=== PATIENT | female | born 1975 | race Caucasian/White ===

== ENCOUNTER 2021-02-04 18:19 | Emergency (ER) | payer OTHER, SELFPAY ==
[2021-02-04 18:26] VITALS: BP 123/68; PULSE 61; TEMP 98.3; BMI 24.2
== END 2021-02-04 18:48 | disposition home or self-care (01) ==
LOC: JER 18:19 → JERFT 18:19
DX: M79.644 Pain in right finger(s) (principal); X50.0XXA Overexertion from strenuous movement or load, initial encounter; Y92.238 Other place in hospital as the place of occurrence of the external cause
CPT/HCPCS: 73140-TC-RT-FY; 99283-25

== ENCOUNTER 2021-07-02 16:20 | Emergency (ER) | payer OTHER ==
[2021-07-02 16:34] VITALS: BP 128/75; PULSE 71; TEMP 98.6; BMI 23.8
== END 2021-07-02 17:18 | disposition home or self-care (01) ==
LOC: JERFT 16:20 → JER 16:20 → JERFT 17:18
DX: S09.93XA Unspecified injury of face, initial encounter (principal); Y04.8XXA Assault by other bodily force, initial encounter
CPT/HCPCS: 99283-25

== ENCOUNTER 2021-08-10 13:29 | Emergency (ER) | payer OTHER ==
[2021-08-10 13:42] VITALS: BMI 23.4
[2021-08-10] MEDS ORDERED: SODIUM CHLORIDE 1,000 ML IV STA (13:43)
[2021-08-10] MEDS ORDERED: ASPIRIN 81 MG CHEWABLE TABLETS PO ONE (13:43)
[2021-08-10] MEDS ORDERED: ACETAMINOPHEN 1000 MG/100 ML BAG IVPB ONE (13:52)
[2021-08-10] MEDS ORDERED: ACETAMINOPHEN INJECTION 100 ML IVPB ONE (13:56)
[2021-08-10 14:35] LABS: BASO % 0.9 % (0-2.0); EOS % 3.5 % (0-4.5); HEMATOCRIT 41.6 % (32.4-45.2); HEMOGLOBIN 14.3 GM/dL (10.7-15.3); LYMPH % 27.2 % (8-40); MCH 32.6 pg (25.7-33.7); MCHC 34.4 g/dl (32.0-36.0); MEAN CELL VOLUME 94.9 fl (80-96); MEAN PLT VOLUME 9.6 fl (7.5-11.1); MONO % 17.7 % (3.8-10.2); NEUT % 50.7 % (42.8-82.8); PLATELET COUNT 212 10^3/uL (134-434); RBC 4.38 M/mm3 (3.60-5.2); RDW 13.4 % (11.6-15.6); WHITE BLOOD COUNT 4.6 K/mm3 (4.0-10.0)
[2021-08-10 14:41] LABS: INR 1.03 (0.83-1.09); PROTHROMBIN TIME (PATIENT) 11.9 SEC (9.7-13.0)
[2021-08-10 14:49] LABS: ACTIVATED PTT 33.6 SECONDS (25.2-36.5)
[2021-08-10 14:54] LABS: CHLORIDE 109 mmol/L (98-107); SODIUM 141 mmol/L (136-145)
[2021-08-10 14:56] LABS: BLOOD UREA NITROGEN 19.2 mg/dL (7-18); GLUCOSE,RANDOM 83 mg/dL (74-106)
[2021-08-10 14:57] LABS: ANION GAP 7 MMOL/L (8-16); CALCIUM 8.4 mg/dL (8.5-10.1); CO2 25 mmol/L (21-32)
[2021-08-10 14:59] LABS: CHOLESTEROL 168 mg/dL (50-200)
[2021-08-10 15:00] LABS: CREATININE 0.7 mg/dL (0.55-1.3); LDL CHOLESTEROL (ONLY SJRH) 98 mg/dL (5-100); SGPT/ALT 43 U/L (13-61); TRIGLYCERIDES 182 mg/dL (0-150)
[2021-08-10 15:01] LABS: BILIRUBIN,TOTAL < 0.1 mg/dL (0.2-1); SGOT/AST 20 U/L (15-37); TOT PROT 6.9 g/dl (6.4-8.2)
[2021-08-10 15:02] LABS: ALK PHOS 53 U/L (45-117); HDL CHOLESTEROL 50 mg/dL (40-60)
[2021-08-10 16:17] VITALS: BP 135/91; PULSE 82; TEMP 98
== END 2021-08-10 16:18 | disposition home or self-care (01) ==
LOC: JER 13:29
PROC: 3E0333Z Introduction of Anti-inflammatory into Peripheral Vein, Percutaneous Approach (ICD-10-PCS; principal; 2021-08-10)
PROC: 3E0337Z Introduction of Electrolytic and Water Balance Substance into Peripheral Vein, Percutaneous Approach (ICD-10-PCS; 2021-08-10)
DX: R06.02 Shortness of breath (principal); E78.1 Pure hyperglyceridemia
CPT/HCPCS: 0241U-QW; 36415; 71046-TC-FY; 80053; 80061; 82550; 82553; 83735; 84436; 84439; 84443; 84479; 84484; 85025; 85610; 85730; 87807; 93005; 93010; 99285-25; C9803-CS; U0003; U0005

== ENCOUNTER 2021-09-15 13:52 | Emergency (ER) | payer OTHER ==
[2021-09-15 14:18] VITALS: TEMP 98.6; BMI 23.4
[2021-09-15 14:25] LABS: BASO % 0.7 % (0-2.0); EOS % 0.8 % (0-4.5); HEMATOCRIT 41.8 % (32.4-45.2); HEMOGLOBIN 13.9 GM/dL (10.7-15.3); LYMPH % 33.3 % (8-40); MCH 31.9 pg (25.7-33.7); MCHC 33.4 g/dl (32.0-36.0); MEAN CELL VOLUME 95.7 fl (80-96); MEAN PLT VOLUME 9.3 fl (7.5-11.1); MONO % 8.6 % (3.8-10.2); NEUT % 56.6 % (42.8-82.8); PLATELET COUNT 271 10^3/uL (134-434); RBC 4.37 M/mm3 (3.60-5.2); RDW 13.2 % (11.6-15.6); WHITE BLOOD COUNT 7.5 K/mm3 (4.0-10.0)
[2021-09-15 14:55] LABS: ALBUMIN 4.4 g/dl (3.4-5.0); BLOOD UREA NITROGEN 19.2 mg/dL (7-18)
[2021-09-15 14:58] LABS: CREATININE 0.9 mg/dL (0.55-1.3)
[2021-09-15 15:00] LABS: BILIRUBIN,TOTAL 0.5 mg/dL (0.2-1); TOT PROT 7.6 g/dl (6.4-8.2)
[2021-09-15 16:38] VITALS: BP 131/91; PULSE 68
== END 2021-09-15 16:00 | disposition home or self-care (01) ==
LOC: JER 13:52
DX: R55 Syncope and collapse (principal)
CPT/HCPCS: 36415; 80053; 82962; 84443; 84481; 84484; 85025; 93005; 93010; 99284-25

== ENCOUNTER 2021-11-14 11:28 | Emergency (ER) | payer BC, OTHER ==
[2021-11-14 11:46] VITALS: BP 131/76; PULSE 69; RESP 19; TEMP 98.6; BMI 24.6
[2021-11-14] MEDS ORDERED: SODIUM CHLORIDE 1,000 ML IV STA ×2 (11:46→13:02)
[2021-11-14] MEDS ORDERED: KETOROLAC TROMETHAMINE 30 MG/1 ML VIAL IVPUSH ONE (11:47)
[2021-11-14] MEDS ORDERED: ONDANSETRON 4 MG/2 ML VIAL IVPUSH ONE (11:47)
[2021-11-14] MEDS ORDERED: KETOROLAC TROMETHAMINE 30 MG/1 ML VIAL ONE (11:51)
[2021-11-14] MEDS ORDERED: ONDANSETRON 4 MG/2 ML VIAL ONE (11:52)
[2021-11-14] MEDS ORDERED: ACETAMINOPHEN 1000 MG/100 ML BAG IVPB ONE (13:02)
[2021-11-14] MEDS ORDERED: ACETAMINOPHEN INJECTION 100 ML IVPB ONE (13:08)
[2021-11-14] MEDS ORDERED: MAGNESIUM SULF 50% (8.12 MEQ/2 ML-1 GM VIAL) IVPB ONE (13:47)
[2021-11-14] MEDS ORDERED: MAGNESIUM SULF 50% (8.12 MEQ/2 ML-1 GM VIAL) ONE (13:51)
== END 2021-11-14 14:57 | disposition home or self-care (01) ==
LOC: JER 11:28 → JERFT 11:28
PROC: 3E033GC Introduction of Other Therapeutic Substance into Peripheral Vein, Percutaneous Approach (ICD-10-PCS; principal; 2021-11-14)
DX: G43.809 Other migraine, not intractable, without status migrainosus (principal)
CPT/HCPCS: 99284-25

== ENCOUNTER 2022-07-24 13:26 | Emergency (ER) | payer BC ==
[2022-07-24 13:33] VITALS: BP 102/63; PULSE 63; RESP 18; TEMP 98.8; BMI 20.1
[2022-07-24] MEDS ORDERED: SODIUM CHLORIDE 0.9% 1000 ML INFUS.BAG IV ONE (13:39)
[2022-07-24] MEDS ORDERED: ONDANSETRON 4 MG/2 ML VIAL IVPUSH ONE (14:15)
[2022-07-24] MEDS ORDERED: KETOROLAC TROMETHAMINE 30 MG/1 ML VIAL IVPUSH ONE (14:15)
[2022-07-24] MEDS ORDERED: ACETAMINOPHEN 1000 MG/100 ML BAG IVPB ONE (14:15)
[2022-07-24] MEDS ORDERED: KETOROLAC TROMETHAMINE 30 MG/1 ML VIAL ONE ×2 (14:29→14:31)
[2022-07-24] MEDS ORDERED: ONDANSETRON 4 MG/2 ML VIAL ONE (14:29)
[2022-07-24] MEDS ORDERED: ACETAMINOPHEN INJECTION 100 ML IVPB ONE (14:29)
[2022-07-24 14:31] LABS: BASO % 0.4 % (0-2.0); EOS % 9.3 % (0-4.5); HEMATOCRIT 35.9 % (32.4-45.2); HEMOGLOBIN 12.7 GM/dL (10.7-15.3); MCH 32.8 pg (25.7-33.7); MCHC 35.5 g/dl (32.0-36.0); MEAN CELL VOLUME 92.2 fl (80-96); MEAN PLT VOLUME 9.7 fl (7.5-11.1); MONO % 16.9 % (3.8-10.2); NEUT % 28.4 % (42.8-82.8); PLATELET COUNT 188 10^3/uL (134-434); RBC 3.89 M/mm3 (3.60-5.2); RDW 12.9 % (11.6-15.6); WHITE BLOOD COUNT 2.4 K/mm3 (4.0-10.0)
[2022-07-24 14:54] LABS: ALBUMIN 3.5 g/dl (3.4-5.0); CALCIUM 8.4 mg/dL (8.5-10.1)
[2022-07-24 14:55] LABS: BLOOD UREA NITROGEN 11.5 mg/dL (7-18)
[2022-07-24 14:57] LABS: CREATININE 0.7 mg/dL (0.55-1.3)
[2022-07-24 14:59] LABS: BILIRUBIN,TOTAL 0.2 mg/dL (0.2-1); TOT PROT 6.4 g/dl (6.4-8.2)
[2022-07-24] MEDS ORDERED: ALBUTEROL SO4 HFA INHALER IH ONE ×2 (15:43→15:48)
[2022-07-24 16:25] LABS: URINE APPEARANCE CLEAR; URINE BILIRUBIN NEGATIVE (NEGATIVE); URINE COLOR YELLOW; URINE GLUCOSE (UA) NEGATIVE (NEGATIVE); URINE KETONE NEGATIVE (NEGATIVE); URINE LEUK ESTERASE NEGATIVE (NEGATIVE); URINE NITRITE NEGATIVE (NEGATIVE); URINE PROTEIN NEGATIVE (NEGATIVE); URINE UROBILINOGEN 0.2 mg/dL (0.2-1.0)
[2022-07-24 17:34] LABS: HCG,QUALITATIVE URINE Negative
== END 2022-07-24 15:56 | disposition home or self-care (01) ==
LOC: JER 13:26
PROC: 3E033GC Introduction of Other Therapeutic Substance into Peripheral Vein, Percutaneous Approach (ICD-10-PCS; principal; 2022-07-24)
PROC: 3E0F7GC Introduction of Other Therapeutic Substance into Respiratory Tract, Via Natural or Artificial Opening (ICD-10-PCS; 2022-07-24)
DX: J10.1 Influenza due to other identified influenza virus with other respiratory manifestations (principal); R05.9 Cough, unspecified; R09.81 Nasal congestion; R50.9 Fever, unspecified; R63.8 Other symptoms and signs concerning food and fluid intake; R11.0 Nausea; M79.10 Myalgia, unspecified site; Z20.822 Contact with and (suspected) exposure to COVID-19
CPT/HCPCS: 0241U-QW; 36415; 71045-TC-FY; 80053; 81003; 84703; 85025; 87070; 87086; 87651; 99284-25

== ENCOUNTER 2023-04-23 10:13 | Emergency (ER) | payer BC, OTHER ==
[2023-04-23 10:29] VITALS: BP 109/45; PULSE 78; RESP 18; TEMP 99.2; BMI 19.9
== END 2023-04-23 11:23 | disposition home or self-care (01) ==
LOC: FER 10:13
DX: S93.402A Sprain of unspecified ligament of left ankle, initial encounter (principal); W01.0XXA Fall on same level from slipping, tripping and stumbling without subsequent striking against object, initial encounter; Y99.0 Civilian activity done for income or pay; Y92.9 Unspecified place or not applicable
CPT/HCPCS: 73610-TC-LT-FY; 73630-TC-LT; 99283-25